=== PATIENT | female | born 1965 | race Caucasian/White ===

== ENCOUNTER 2017-01-04 11:37 | Emergency (ER) | payer SELFPAY ==
[~2017-01-04] VITALS: Ht 162.6 cm; Wt 65.9 kg
[~2017-01-04 11:37] MED LIST: AMBIEN CR6.25 MG PO; ASPIRIN 81M81 MG/TA2 PO; CEPHALEXIN500 M1 PO; EFFEXOR 75M75 MG/TAB PO; MOTRIN 600600 MG/TAB PO; NEURONTIN600 MG/TAB PO; NORCO 325 MG-51 TAB PO; PERCOCET 325 MG1 TA2 PO; PRENATAL VITAMI1 TA5 PO; ULTRAM 50MG TAB50 MG PO
[2017-01-04 11:45] VITALS: BP 107/79; PULSE 75; TEMP 98.9
== END 2017-01-04 13:18 | disposition home or self-care (01) ==
LOC: COL.ER 11:37
DX: S90.32XA Contusion of left foot, initial encounter (principal); Y92.009 Unspecified place in unspecified non-institutional (private) residence as the place of occurrence of the external cause; W22.8XXA Striking against or struck by other objects, initial encounter; F17.210 Nicotine dependence, cigarettes, uncomplicated

== ENCOUNTER → 2020-08-15 | Outpatient (CLI) | payer SELFPAY | LOC: COL.RAD 07:04 | DX: G40.909 Epilepsy, unspecified, not intractable, without status epilepticus (principal) ==

== ENCOUNTER → 2021-04-30 | Outpatient (CLI) | payer OTHER | LOC: COL.RAD 12:00 | DX: M51.26 Other intervertebral disc displacement, lumbar region (principal); M51.27 Other intervertebral disc displacement, lumbosacral region; M40.56 Lordosis, unspecified, lumbar region ==

== ENCOUNTER → 2021-06-09 | Outpatient (CLI) | payer OTHER | LOC: MHCPAIN 09:40 | DX: M47.816 Spondylosis without myelopathy or radiculopathy, lumbar region (principal); M54.6 Pain in thoracic spine; M54.50 Low back pain, unspecified; M54.2 Cervicalgia | CPT/HCPCS: G0463 ==

== ENCOUNTER 2021-08-14 09:45 | Outpatient (RCR) | payer OTHER | END 2021-08-19 | disposition home or self-care (01) | LOC: WSPT | DX: M54.41 Lumbago with sciatica, right side (principal); M54.42 Lumbago with sciatica, left side; G89.29 Other chronic pain ==

== ENCOUNTER 2021-09-16 08:15 | Outpatient (RCR) | payer OTHER | END 2021-09-18 | disposition home or self-care (01) | LOC: WSPT | DX: M54.41 Lumbago with sciatica, right side (principal); M54.42 Lumbago with sciatica, left side; G89.29 Other chronic pain ==

== ENCOUNTER → 2021-09-18 | Outpatient (RCR) | payer OTHER | LOC: WSPT | DX: M25.511 Pain in right shoulder (principal) ==

== ENCOUNTER → 2022-05-20 | Outpatient (CLI) | payer OTHER | LOC: COL.CARD 09:12 | DX: R41.89 Other symptoms and signs involving cognitive functions and awareness (principal) ==